=== PATIENT | male | born 1990 | race Two or more races ===

== ENCOUNTER 2023-01-27 09:50 | Emergency (ER) | payer OTHER ==
[2023-01-27] MEDS ORDERED: Sodium Chloride 0.9% 1,000 ML IV ONE (10:01)
[2023-01-27] MEDS ORDERED: Diphtheria,Pertussis(Acell),Tetanus Vaccine 0.5 ML Syringe IM ONE (10:01)
[2023-01-27] MEDS ORDERED: Ondansetron 4 MG/2 ML SDV IVPUSH ONE (10:01)
[2023-01-27] MEDS ORDERED: Sodium Chloride 0.9% 10 ML Syringe FLUSH PRN (10:01)
[2023-01-27] MEDS ORDERED: Morphine 4 MG/ML Syringe IVPUSH ONE (10:01)
[2023-01-27] MEDS ORDERED: Naloxone 0.4 MG/ML SDV IVPUSH PRN (10:01)
[2023-01-27] MEDS ORDERED: Sodium Chloride 0.9% 2.5 ML Syringe FLUSH PRN (10:01)
[2023-01-27] MEDS ORDERED: Lidocaine/Epineph/Tetracaine 3 ML Syringe TOP ONE (10:07)
[2023-01-27 10:11] LABS: BASOPHILS PERCENT AUTO 0.3 % (0.0-1.5); EOSINOPHILS ABSOLUTE AUTO 0.2 K/uL (0.0-0.7); EOSINOPHILS PERCENT AUTO 1.3 % (0.0-7.0); HEMOGLOBIN 16.5 g/dL (13.0-17.0); LYMPHOCYTES ABSOLUTE AUTO 2.7 K/uL (0.6-2.4); LYMPHOCYTES PERCENT AUTO 21.7 % (16.0-40.0); MEAN CORPUSCULAR HEMOGLOBIN 28.2 pg (27.0-32.0); MEAN CORPUSCULAR HGB CONC 35.1 g/dL (31.0-37.0); MEAN CORPUSCULAR VOLUME 80.3 fL (80.0-98.0); MONOCYTES ABSOLUTE AUTO 1.2 K/uL (0.0-0.8); MONOCYTES PERCENT AUTO 9.8 % (0.0-15.0); NEUTROPHILS ABSOLUTE AUTO 8.3 K/uL (1.4-5.7); NEUTROPHILS PERCENT AUTO 66.9 % (48.0-80.0); NRBC ABSOLUTE 0 K/uL; PLATELET COUNT,PLT 294 K/uL (150-400); RED BLOOD CELL COUNT 5.85 M/uL (4.50-5.90); WHITE BLOOD CELL COUNT,WBC 12.46 K/uL (4.0-11.0)
[2023-01-27 10:25] LABS: INR 1.03 (0.86-1.11)
[2023-01-27 10:43] LABS: A/G RATIO 1.1 (0.9-1.6); ALBUMIN 4.6 g/dL (3.4-5.0); EST CRCL DRUG DOSING (CG) 99.15 mL/min; MAGNESIUM 1.9 mg/dL (1.8-2.4); PROTEIN TOTAL,TP 8.6 g/dL (6.4-8.2)
[2023-01-27 11:43] LABS: HEMOGLOBIN A1C 12.8 %
[2023-01-27] MEDS ORDERED: Iopamidol 755 MG/ML 500 ML Multipack Bottle IVPUSH STA (12:10)
[2023-01-27] MEDS ORDERED: Acetaminophen/HYDROcodone 325-5 MG Tab PO ONE (14:10)
== END 2023-01-27 15:07 | disposition home or self-care (01) ==
LOC: MW.ED 09:50
DX: S52.513A Displaced fracture of unspecified radial styloid process, initial encounter for closed fracture (principal); S52.613A Displaced fracture of unspecified ulna styloid process, initial encounter for closed fracture; S22.39XA Fracture of one rib, unspecified side, initial encounter for closed fracture; S06.0XAA Concussion with loss of consciousness status unknown, initial encounter; S00.01XA Abrasion of scalp, initial encounter; K76.0 Fatty (change of) liver, not elsewhere classified; F17.210 Nicotine dependence, cigarettes, uncomplicated; E11.9 Type 2 diabetes mellitus without complications; V89.2XXA Person injured in unspecified motor-vehicle accident, traffic, initial encounter; Y92.410 Unspecified street and highway as the place of occurrence of the external cause
CPT/HCPCS: 29125; 36415; 70450; 71046; 71100; 71260; 72125; 73090; 73110; 74177; 80053; 83036; 83690; 83735; 84484; 85025; 85610; 90471; 90715; 93005; 96361; 96374; 96375; 99285; A9270; J2270; J2405; J3490; J7030; Q9967; 93010; 99291